=== PATIENT | female | born 1980 | race Caucasian/White ===

== ENCOUNTER 2017-05-22 11:02 | Outpatient (CLI) | payer OTHER | END 2017-05-22 11:39 | disposition home or self-care (01) | LOC: NST 11:02 | DX: Z34.83 Encounter for supervision of other normal pregnancy, third trimester (principal) ==

== ENCOUNTER 2024-12-07 13:52 | Outpatient (CLI) | payer OTHER ==
[~2024-12-07 13:52] MED LIST: PRENATAL TABLE1 EAC1 PO
== END 2024-12-07 14:07 | disposition home or self-care (01) ==
LOC: RAD 13:52
DX: J20.8 Acute bronchitis due to other specified organisms (principal)